=== PATIENT | female | born 1985 | race Caucasian/White ===

== ENCOUNTER 2017-11-29 19:27 | Emergency (ER) | payer OTHER ==
[2017-11-29 19:41] VITALS: BMI 27.3
--- NOTE | 2017-11-29 20:01 | PDOC ---
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 States she was in her usual states of health, standing on line at the [employer] for a table when she suddenly felt hot. She told her that she was not feeling well and leaned into towards him then passed out. States she was told her eye rolled back and was shaking prior to passing out. Does not recall hitting her head she woke up to people arround her. No chest pain, dizziness. PMD: Tino-Steele PMHX: as above PSOCHX: neg drug, cig, etoh ALL: NKDA GENERAL/CONSTITUTIONAL: [No fever or chills. No weakness. No weight change.] HEAD, EYES, EARS, NOSE AND THROAT: [No change in vision. No ear pain or discharge. No sore throat.] CARDIOVASCULAR: [No chest pain or shortness of breath.] RESPIRATORY: [No cough, wheezing, or hemoptysis.] GASTROINTESTINAL: [No nausea, vomiting, diarrhea or constipation. No rectal bleeding.] GENITOURINARY: [No dysuria, frequency, or change in urination.] MUSCULOSKELETAL: [No joint or muscle swelling or pain. No neck or back pain.] SKIN AND BREASTS: [No rash or easy bruising.] NEUROLOGIC: [No headache, vertigo, loss of consciousness, or loss of sensation.] PSYCHIATRIC: [No depression or anxiety.] ENDOCRINE: [No increased thirst. No abnormal weight change.] HEMATOLOGIC/LYMPHATIC: [No anemia, easy bleeding, or history of blood clots.] ALLERGIC/IMMUNOLOGIC: [No hives or skin allergy. No latex allergy.] GENERAL: [The patient is awake, alert, and fully oriented, in no acute distress. ] HEAD: [Normal with no signs of trauma.] EYES: [Pupils equal, round and reactive to light, extraocular movements intact, sclera anicteric, conjunctiva clear.] ENT: [Ears normal, nares patent, oropharynx clear without exudates. Moist mucous membranes.] NECK: [Normal range of motion, supple without lymphadenopathy, JVD, or masses.] LUNGS: [Breath sounds equal, clear to auscultation bilaterally. No wheezes, and no crackles.] HEART: [Regular rate and rhythm, normal S1 and S2 without murmur, rub.] ABDOMEN: [Soft, nontender, normoactive bowel sounds. No guarding, no rebound. No masses.] EXTREMITIES: [Normal range of motion, no edema. No clubbing or cyanosis. No cords, erythema, or tenderness.] NEUROLOGICAL: [Cranial nerves II through XII grossly intact. Normal speech, normal gait.] PSYCH: [Normal mood, normal affect.] SKIN: [Warm, Dry, normal turgor, no rashes or lesions noted.] Past History - Past Medical History Allergies/Adverse Reactions: Allergies Allergy/AdvReac Type Severity Reaction Status Date / Time No Known Allergies Allergy Verified 11/29/17 19:41 - Suicide/Smoking/Psychosocial Hx Smoking History: Never smoked Have you smoked in the past 12 months: No Information on smoking cessation initiated: No Hx Alcohol Use: No Drug/Substance Use Hx: No *Physical Exam - Vital Signs Last Vital Signs Temp Pulse Resp BP Pulse Ox 98.1 F 68 14 120/76 100 11/29/17 19:39 11/29/17 21:51 11/29/17 19:39 11/29/17 21:51 11/29/17 19:39 ED Treatment Course - LABORATORY CBC & Chemistry Diagram: 11/29/17 20:45 11/29/17 20:45 - ADDITIONAL ORDERS Additional order review: Laboratory Results 11/29/17 11/29/17 11/29/17 20:45 20:40 19:41 Sodium Cancelled 139 Potassium Cancelled 4.6 Chloride Cancelled 108 H Carbon Dioxide Cancelled 24 Anion Gap Cancelled 7 L BUN Cancelled 16 Creatinine Cancelled 0.8 Creat Clearance w eGFR > 60 Random Glucose Cancelled 88 Calcium Cancelled 8.6 Total Bilirubin 0.4 AST 16 ALT 19 Alkaline Phosphatase 54 Total Protein 7.5 Albumin 3.5 Urine Color Yellow Urine Appearance Clear Urine pH 5.0 Ur Specific [place] 1.029 Urine Protein Negative Urine Glucose (UA) Negative Urine Ketones Negative Urine Blood Negative Urine Nitrite Negative Urine Bilirubin Negative Urine Urobilinogen 2.0 H Ur Leukocyte Esterase Negative Urine HCG, Qual Negative 11/29/17 20:45 RBC 5.02 MCV 79.5 L MCHC 32.1 RDW 15.4 MPV 8.5 Medical Decision Making - Medical Decision Making 11/29/17 19:54 Patient is a 32-year-old female with h/o gastric bypass 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 labs, orthostatic ekg 11/29/17 21:41 EKG SR rate 63, NAD, (-) ST-T wave no acute labs findings, not orthostatic. will discharge I discussed the physical exam findings, ancillary test results and final diagnoses with the patient. I answered all of the patient's questions. The patient was satisfied with the care received and felt comfortable with the discharge plan and treatment plan. The Patient agrees to follow up with the primary care physician within 24-72 hours. *DC/Admit/Observation/Transfer Diagnosis at time of Disposition: Syncope Qualifiers: Syncope type: vasovagal syncope Qualified Code(s): R55 - Syncope and collapse - Discharge Dispostion Disposition: HOME Condition at time of disposition: Stable - Referrals Referrals: ON STAFF,NOT [Primary Care Provider] - - Patient Instructions Printed Discharge Instructions: DI for Syncope in Adults (Fainting) Additional Instructions: Your Discharge Instructions: You must call primary care physician within 24 hours to arrange follow-up. Return to the Emergency Department with any new, persistent or worsening symptoms, for fever, chills, SOB, dizziness or any other concerning changes that may occur. He must follow-up with your PMD and cardiology in one to 2 days - Post Discharge Activity
[2017-11-29 20:36] LABS: URINE APPEARANCE CLEAR; URINE BILIRUBIN NEGATIVE (<2.0 mg/dL); URINE COLOR YELLOW; URINE GLUCOSE (UA) NEGATIVE (NEGATIVE); URINE KETONE NEGATIVE (NEGATIVE); URINE LEUK ESTERASE NEGATIVE (NEGATIVE); URINE NITRITE NEGATIVE (NEGATIVE); URINE PROTEIN NEGATIVE (NEGATIVE)
[2017-11-29 20:48] LABS: HCG,QUALITATIVE URINE NEGATIVE
[2017-11-29 20:57] LABS: HEMOGLOBIN 12.8 GM/dL (10.7-15.3); MCH 25.5 pg (25.7-33.7); MCHC 32.1 g/dl (32.0-36.0); MEAN CELL VOLUME 79.5 fl (80-96); MEAN PLT VOLUME 8.5 fl (7.5-11.1); PLATELET COUNT 298 K/MM3 (134-434); RBC 5.02 M/mm3 (3.60-5.2); RDW 15.4 % (11.6-15.6)
[2017-11-29 21:44] LABS: ANION GAP 7 (8-16); BLOOD UREA NITROGEN 16 mg/dL (7-18); CALCIUM 8.6 mg/dL (8.5-10.1); CHLORIDE 108 mmol/L (98-107); CO2 24 mmol/L (21-32); CREATININE 0.8 mg/dL (0.55-1.02); GLUCOSE,RANDOM 88 mg/dL (74-106); POTASSIUM 4.6 mmol/L (3.5-5.1); SODIUM 139 mmol/L (136-145)
[2017-11-29 21:59] LABS: ALBUMIN 3.5 g/dl (3.4-5.0); ALK PHOS 54 U/L (45-117); BILIRUBIN,TOTAL 0.4 mg/dL (0.2-1.0); SGOT/AST 16 U/L (15-37); SGPT/ALT 19 U/L (12-78); TOT PROT 7.5 g/dl (6.4-8.2)
[2017-11-29 22:41] VITALS: PULSE 68
[2017-11-29 22:49] VITALS: BP 122/74; TEMP 98.3
[2017-11-29 22:51] LABS: ANION GAP 8 (8-16); BLOOD UREA NITROGEN 15 mg/dL (7-18); CALCIUM 8.4 mg/dL (8.5-10.1); CHLORIDE 108 mmol/L (98-107); CO2 24 mmol/L (21-32); CREATININE 0.8 mg/dL (0.55-1.02); GLUCOSE,RANDOM 85 mg/dL (74-106); POTASSIUM 4.5 mmol/L (3.5-5.1); SODIUM 140 mmol/L (136-145)
--- NOTE | 2017-11-30 22:09 | EKG ---
Test Reason : Blood Pressure : / mmHG Vent. Rate : 063 BPM Atrial Rate : 063 BPM P-R Int : 134 ms QRS Dur : 096 ms QT Int : 414 ms P-R-T Axes : 036 026 031 degrees QTc Int : 423 ms NORMAL SINUS RHYTHM WITH SINUS ARRHYTHMIA NORMAL ECG NO PREVIOUS ECGS AVAILABLE Confirmed by XENIA ARANDA MD ([id number]) on 11/30/2017 10:09:06 PM Referred By: Confirmed By:XENIA ARANDA MD
== END 2017-11-29 22:49 | disposition home or self-care (01) ==
LOC: JER 19:27 → SUPCPDRO 19:27 → JER 22:49
DX: R55 Syncope and collapse (principal)
CPT/HCPCS: 36415; 80048; 80053; 81003; 84703; 85027; 93005; 93010; 99282-25

== ENCOUNTER 2019-06-14 15:30 | Inpatient (IN) | payer OTHER ==
[2019-06-14] MEDS ORDERED: AMPICILLIN SODIUM 2 GM VIAL ONE (16:40)
[2019-06-14] MEDS: ELECTROLYTE-148 SOLN 1,000 ML IV SCH (17:00)
--- NOTE | 2019-06-14 17:11 | HP ---
Past Medical History - Primary Care Physician PCP:: Moira Liu - Admission Chief Complaint: Srom. Labor History of Present Illness: 33 yo EDC EGA week with c/o srom and labor History Source: Patient Limitations to Obtaining History: No Limitations - Past Medical History ...: 1 ...Para: 0 ...Term: 0 ...: 0 ...Spon : 0 ...Induced : 0 ...LMP: 09/29/18 ... Weeks Gestation by Dates: 36.4 ...EDC by Dates: 07/08/19 ...EDC by Sono: 07/06/19 - Past Surgical History Past Surgical History: Yes: None - Smoking History Smoking history: Never smoked Have you smoked in the past 12 months: No - Alcohol/Substance Use Hx Alcohol Use: No History of Substance Use: reports: None - Social History History of Recent Travel: Yes Home Medications - Allergies Allergies/Adverse Reactions: Allergies Allergy/AdvReac Type Severity Reaction Status Date / Time No Known Allergies Allergy Verified 06/09/19 12:38 - Home Medications Home Medications: Ambulatory Orders 19 Tablet 1 tab PO DAILY 06/09/19 Physical Exam - Maternity Vital Signs: Vital Signs Temperature 99.1 F 06/14/19 15:45 Pulse Rate 78 06/14/19 15:45 Respiratory Rate 18 06/14/19 15:45 Blood Pressure 117/65 06/14/19 15:45 O2 Sat by Pulse Oximetry (%) Constitutional: Yes: Well Nourished, No Distress Cardiovascular: Yes: WNL Lungs: Clear to auscultation Breast(s): Yes: WNL - Vaginal Exam/OB Dilatation (cm): 4 Amniotic Membrane Status: Ruptured Amniotic Fluid: Yes: Clear Presentation: Vertex/Position - Physical Exam Edema: No Psychiatric: Yes: WNL, Alert, Oriented Hemorrhage Risk Assessment - Risk Factors Risk Score: 0 Risk Level: Low Risk Problem List - Problems (1) Ruptured, membranes, premature Problems reviewed: Yes Code(s): O42.90 - GIOVANNI ROM, 7TH0 BETW RUPT & ONST LABR, UNSP WEEKS OF GEST
[2019-06-14] MEDS ORDERED: AMPICILLIN - 2 GM in SODIUM CHLORIDE 100 ML IVPB ONE (17:12)
[2019-06-14 17:33] VITALS: BMI 34.5
--- NOTE | 2019-06-14 19:49 | PN ---
Progress Note, Labor Vaginal Exam #1 Labor Exam Date: 06/14/19 Labor Exam Time: 19:35 Heart Rate (range): 140 Dilatation: 6 Effacement (%): 100 Amniotic Membrane Status: Ruptured Presentation: Vertex/Position Station: 0 (In pain. Declining epidural. Stadol)
[2019-06-14] MEDS ORDERED: PROMETHAZINE HCL 25 MG/1 ML VIAL ONE (19:58)
[2019-06-14] MEDS ORDERED: OXYTOCIN 20 UNITS in 0.9% NS 20 UNIT/1,000 ML INFUS.BAG IV ONE (19:58)
[2019-06-14] MEDS ORDERED: BUTORPHANOL TARTRATE 1 MG/ML VIAL ONE ×2 (19:58)
[2019-06-14 19:59] LABS: BASO % 0.2 % (0-2.0); HEMOGLOBIN 10.6 GM/dL (10.7-15.3); MCH 25.7 pg (25.7-33.7); MCHC 32.3 g/dl (32.0-36.0); MEAN CELL VOLUME 79.5 fl (80-96); MEAN PLT VOLUME 8.5 fl (7.5-11.1); MONO % 4.9 % (3.8-10.2); NEUT % 89.9 % (42.8-82.8); PLATELET COUNT 235 K/MM3 (134-434); RBC 4.15 M/mm3 (3.60-5.2); RDW 14.7 % (11.6-15.6)
[2019-06-14] MEDS ORDERED: BUTORPHANOL TARTRATE 2 MG/ML VIAL IVPB ONE (20:00)
[2019-06-14] MEDS ORDERED: PROMETHAZINE HCL 25 MG/1 ML VIAL IVPB ONE (20:00)
[2019-06-14] MEDS: AMPICILLIN - 1 GM in SODIUM CHLORIDE 100 ML IVPB SCH ×2 (20:05→21:30)
[2019-06-14 20:07] LABS: BLOOD UREA NITROGEN 9.5 mg/dL (7-18); CALCIUM 8.5 mg/dL (8.5-10.1); CREATININE 0.6 mg/dL (0.55-1.3); POTASSIUM 4.1 mmol/L (3.5-5.1)
[2019-06-14 20:12] LABS: INR 0.95 (0.83-1.09); PROTHROMBIN TIME (PATIENT) 11.2 SEC (9.7-13.0)
[2019-06-14 20:15] LABS: ACTIVATED PTT 27.5 SECONDS (25.2-36.5)
[2019-06-14 20:45] LABS: PLATELET ESTIMATE ADEQUATE
[2019-06-14] MEDS ORDERED: AMPICILLIN SODIUM 1 GM VIAL ONE (21:37)
[2019-06-14] MEDS ORDERED: LIDOCAINE HCL 1% PRESERVATIVE FREE - 30ML VIAL ONE (23:47)
[2019-06-15] MEDS: AMPICILLIN - 1 GM in SODIUM CHLORIDE 100 ML IVPB SCH (01:13)
[2019-06-15] MEDS ORDERED: BENZOCAINE 28 GM HEMORRHOIDAL OINTMENT TP PRN (01:17)
[2019-06-15] MEDS ORDERED: WITCH HAZEL 50% (TUCKS) 40 PAD/JAR PAD TP PRN (01:17)
[2019-06-15] MEDS ORDERED: METHYLERGONOVINE MALEATE 0.2 MG/1 ML AMP IM PRN (01:17)
[2019-06-15] MEDS ORDERED: BISACODYL 10 MG SUPP.RECT RC PRN (01:17)
[2019-06-15] MEDS ORDERED: BENZOCAINE 20% 57 GM BOTTLE TP PRN (01:17)
--- NOTE | 2019-06-15 01:22 | PN ---
Delivery - Delivery Vaginal Delivery: Spontaneous Episiotomy/Laceration: 1st degree EBL (cc): 300 Delivery, Single - [place] Feeding Plan Initial Plan: Exclusive throughout hospitalization Remarks - Remarks Remarks: Normal spontaneous vaginal delivery of a infant over first degree laceration. Nose / Oropharynx suctioned @ perineum. Cord clamped and cut. Baby handed to nurse. Placenta expelled spontaneously intact
[2019-06-15] MEDS ORDERED: OXYTOCIN 20 UNITS in 0.9% NS 20 UNIT/1,000 ML INFUS.BAG IV SCH (01:30)
[2019-06-15] MEDS ORDERED: OXYTOCIN 20 UNITS in 0.9% NS 20 UNIT/1,000 ML INFUS.BAG IV ONE (01:55)
[2019-06-15] MEDS ORDERED: ACETAMINOPHEN 325 MG TABLET (FP) ONE (01:55)
[2019-06-15] MEDS ORDERED: IBUPROFEN 600 MG TABLET (FP) PO ONE (01:55)
[2019-06-15] MEDS: ACETAMINOPHEN 325 MG TABLET (FP) PO PRN ×4 (02:00→19:34)
[2019-06-15] MEDS: IBUPROFEN 600 MG TABLET (FP) PO PRN ×4 (02:00→19:33)
[2019-06-15] MEDS: PRENATAL VITAMINS W/ FOLIC ACID TABLET (FP) PO SCH (09:52)
[2019-06-15] MEDS: FERROUS SO4 325 MG TABLET (FP) PO SCH ×2 (09:53→21:32)
[2019-06-15] MEDS: ELECTROLYTE-148 SOLN 1,000 ML IV SCH (22:32)
--- NOTE | 2019-06-15 23:25 | PN ---
Post Note - Post Date of Delivery: 06/15/19 Post Day: 0 Vital Signs: Vital Signs - 24 hr 06/15/19 06/15/19 06/15/19 00:00 01:30 01:45 Temperature 98.6 F Pulse Rate 92 H 62 66 Respiratory 18 18 18 Rate Blood Pressure 129/62 110/49 L 107/54 L O2 Sat by Pulse 96 97 Oximetry (%) 06/15/19 06/15/19 06/15/19 02:00 02:15 03:00 Temperature 98.3 F Pulse Rate 70 66 95 H Respiratory 18 18 18 Rate Blood Pressure 107/56 L 106/52 L 104/57 L O2 Sat by Pulse 97 97 Oximetry (%) 06/15/19 06/15/19 06/15/19 04:25 06:00 09:56 Temperature 98.3 F 98.1 F 97.5 F L Pulse Rate 58 L 67 61 Respiratory 18 18 18 Rate Blood Pressure 105/47 L 113/58 L 99/46 L O2 Sat by Pulse Oximetry (%) 06/15/19 06/15/19 06/15/19 14:00 17:47 22:00 Temperature 97.5 F L 98.1 F 97.8 F Pulse Rate 77 68 87 Respiratory 18 18 18 Rate Blood Pressure 99/50 L 104/51 L 105/56 L O2 Sat by Pulse Oximetry (%) Labs: Laboratory Results - last 24 hr 06/14/19 19:20 RPR Titer Nonreactive - Subjective Subjective: No Complaints - Objective Afebrile: Yes Breast: Not engorged Abdomen: Soft Uterus: Fundus firm Vagina: Scant lochia Extremities: Non-tender - Assessment/Plan (1) Ruptured, membranes, premature Assessment: S/P Normal Plan: Routine Care
--- NOTE | 2019-06-16 06:56 | PN ---
Post Note - Post Date of Delivery: 06/15/19 Vital Signs: Vital Signs - 24 hr 06/15/19 06/15/19 06/15/19 09:56 14:00 17:47 Temperature 97.5 F L 97.5 F L 98.1 F Pulse Rate 61 77 68 Respiratory 18 18 18 Rate Blood Pressure 99/46 L 99/50 L 104/51 L 06/15/19 22:00 Temperature 97.8 F Pulse Rate 87 Respiratory 18 Rate Blood Pressure 105/56 L - Subjective Subjective: No Complaints - Objective Breast: Not engorged Abdomen: Soft, Non-tender Uterus: Fundus firm Vagina: Scant lochia Extremities: Non-tender - Assessment/Plan (1) Ruptured, membranes, premature Assessment: S/P Normal Plan: Routine Care
[2019-06-16] MEDS: ACETAMINOPHEN 325 MG TABLET (FP) PO PRN ×2 (08:05→20:28)
[2019-06-16] MEDS: IBUPROFEN 600 MG TABLET (FP) PO PRN ×2 (08:05→20:27)
[2019-06-16] MEDS: PRENATAL VITAMINS W/ FOLIC ACID TABLET (FP) PO SCH (09:14)
[2019-06-16] MEDS: FERROUS SO4 325 MG TABLET (FP) PO SCH ×2 (09:14→22:00)
[2019-06-16 09:29] LABS: BASO % 0.3 % (0-2.0); EOS % 0.4 % (0-4.5); HEMATOCRIT 26.5 % (32.4-45.2); HEMOGLOBIN 8.7 GM/dL (10.7-15.3); LYMPH % 19.8 % (8-40); MCHC 32.9 g/dl (32.0-36.0); MEAN CELL VOLUME 79.1 fl (80-96); MONO % 5.5 % (3.8-10.2); PLATELET COUNT 217 K/MM3 (134-434); RBC 3.35 M/mm3 (3.60-5.2); RDW 14.8 % (11.6-15.6); WHITE BLOOD COUNT 14.8 K/mm3 (4.0-10.0)
[2019-06-16] MEDS ORDERED: SENNOSIDES/DOCUSATE COMBO (SENNA PLUS) TABLET (UD) PO PRN (22:00)
[2019-06-17 00:11] VITALS: TEMP 98
[2019-06-17] MEDS: IBUPROFEN 600 MG TABLET (FP) PO PRN ×2 (04:24→10:27)
[2019-06-17] MEDS: ACETAMINOPHEN 325 MG TABLET (FP) PO PRN ×2 (04:25→10:24)
[2019-06-17 09:17] VITALS: BP 126/66; PULSE 57
[2019-06-17] MEDS: FERROUS SO4 325 MG TABLET (FP) PO SCH (10:24)
[2019-06-17] MEDS: PRENATAL VITAMINS W/ FOLIC ACID TABLET (FP) PO SCH (10:24)
== END 2019-06-17 13:25 | disposition home or self-care (01) | DRG 560 ==
LOC: JDEL 15:30 → JLDR 16:15 → J3W 06-15 04:20
PROVIDERS: ADMIT Obstetrics & Gynecology; ATTEND Obstetrics & Gynecology
PROC: 0HQ9XZZ Repair Perineum Skin, External Approach (ICD-10-PCS; principal; 2019-06-15)
PROC: 10E0XZZ Delivery of Products of Conception, External Approach (ICD-10-PCS; 2019-06-15)
DX: O42.92 Full-term premature rupture of membranes, unspecified as to length of time between rupture and onset of labor (principal); O70.0 First degree perineal laceration during delivery; Z3A.37 37 weeks gestation of pregnancy; Z37.0 Single live birth
CPT/HCPCS: 36415; 59025; 59409; 80048; 85025; 85610; 85730; 86593; 86850; 86900; 86901